=== PATIENT | male | born 1995 | race Caucasian/White ===

== ENCOUNTER 2017-08-27 18:20 | Emergency (ER) | payer MEDICAID | END 2017-08-27 19:45 | disposition home or self-care (01) | LOC: E/R 19:45 | DX: M54.2 Cervicalgia (principal); M54.9 Dorsalgia, unspecified; M25.511 Pain in right shoulder | CPT/HCPCS: 71045; 72040; 73000; 99284-25 ==

== ENCOUNTER 2017-09-25 11:26 | Emergency (ER) | payer MEDICAID | END 2017-09-25 12:30 | disposition home or self-care (01) | LOC: E/R 11:26 | DX: S60.221A Contusion of right hand, initial encounter (principal); V03.10XA Pedestrian on foot injured in collision with car, pick-up truck or van in traffic accident, initial encounter | CPT/HCPCS: 73110; 73110-RT; 73130-RT; 99283-25 ==

== ENCOUNTER 2017-09-26 16:14 | Emergency (ER) | payer MEDICAID | END 2017-09-26 16:29 | disposition home or self-care (01) | LOC: E/R 16:29 | DX: L03.115 Cellulitis of right lower limb (principal) | CPT/HCPCS: 99284; Z7502 ==

== ENCOUNTER 2018-04-11 13:18 | Emergency (ER) | payer SELFPAY, MEDICAID ==
[2018-04-11] MEDS: ONDANSETRON (ODT) 4 MG TAB ODT (15:41)
[2018-04-11] MEDS: CYCLOBENZAPRINE 10 MG TAB PO (15:48)
[2018-04-11] MEDS: IBUPROFEN 600 MG TAB PO (15:48)
== END 2018-04-11 16:00 | disposition home or self-care (01) ==
LOC: FTE 13:18
DX: R52 Pain, unspecified (principal); R40.2412 Glasgow coma scale score 13-15, at arrival to emergency department
CPT/HCPCS: 99283

== ENCOUNTER 2018-07-11 15:37 | Emergency (ER) | payer SELFPAY ==
[2018-07-11] MEDS: SOD CHLORIDE 0.9% 1,000 ML IV (19:03)
[2018-07-11] MEDS: morphine 4 MG/ML VIAL IV (19:04)
[2018-07-11] MEDS: ONDANSETRON 4 MG INJ IV (19:04)
[2018-07-11 19:08] LABS: ADD MAN DIFF? NO
[2018-07-11 19:12] LABS: WHITE BLOOD COUNT 8.6 10^3/ul (4.8-10.8)
[2018-07-11 19:12] LABS: BASOPHILS % 0.5 % (0.0-2.0); EOSINOPHILS # 0.1 10^3/ul (0.0-0.5); EOSINOPHILS % 1.4 % (0.0-7.0); HEMATOCRIT 50.1 % (42.0-52.0); HEMOGLOBIN 16.4 g/dl (14.0-18.0); LYMPHOCYTES # 1.8 10^3/ul (0.8-2.9); LYMPHOCYTES % 21.5 % (18.0-55.0); MEAN CORPUSCULAR HEMOGLOBIN 29.5 pg (29.0-33.0); MEAN CORPUSCULAR HGB CONC 32.7 g/dl (32.0-37.0); MEAN CORPUSCULAR VOLUME 90.3 fl (72.0-104.0); MEAN PLATELET VOLUME 10.3 fl (7.4-10.4); MONOCYTE # 0.6 10^3/ul (0.3-0.9); NEUTROPHIL # 5.9 10^3/ul (1.6-7.5); NEUTROPHILS % 69.1 % (30.0-74.0); PLATELET COUNT 163 10^3/UL (140-415); RED BLOOD COUNT 5.55 10^6/ul (4.70-6.10); RED CELL DISTRIBUTION WIDTH 13.1 % (11.5-14.5)
[2018-07-11 19:16] LABS: ADD UMIC NO; UR ASCORBIC ACID NEGATIVE (NEGATIVE); UR BILIRUBIN (Dip) NEGATIVE (NEGATIVE); UR BLOOD (Dip) NEGATIVE (NEGATIVE); UR CLARITY CLEAR (CLEAR); UR COLOR YELLOW (YELLOW); UR GLUCOSE (Dip) NEGATIVE (NEGATIVE); UR KETONES (Dip) 1+ mg/dL (NEGATIVE); UR LEUKOCYTE ESTERASE (Dip) NEGATIVE Leu/ul (NEGATIVE); UR NITRITE (Dip) NEGATIVE (NEGATIVE); UR SPECIFIC GRAVITY (Dip) 1.031 (1.003-1.030); UR TOTAL PROTEIN (Dip) NEGATIVE (NEGATIVE); UR UROBILINOGEN (Dip) 2+ mg/dL (NEGATIVE)
[2018-07-11 19:29] LABS: ALANINE AMINOTRANSFERASE 23 IU/L (13-69); ALBUMIN/GLOBULIN RATIO 1.61; ALKALINE PHOSPHATASE 89 IU/L (42-121); ANION GAP 13 (5-13); ASPARTATE AMINO TRANSFERASE 40 IU/L (15-46); BILIRUBIN,INDIRECT 1.5 mg/dl (0-1.1); BILIRUBIN,TOTAL 1.5 mg/dl (0.2-1.3); BLOOD UREA NITROGEN 22 mg/dl (7-20); CALCIUM 9.8 mg/dl (8.4-10.2); CARBON DIOXIDE 27 mmol/L (21-31); CHLORIDE 101 mmol/L (97-110); Estimated GFR > 60 mL/min (>60); GLUCOSE 83 mg/dl (70-220); LIPASE 67 U/L (23-300); POTASSIUM 4.2 mmol/L (3.5-5.1); SODIUM 141 mmol/L (135-144); TOTAL PROTEIN 8.1 g/dl (6.1-8.1)
[2018-07-11] MEDS: SOD CHLORIDE 0.9% 100 ML (20:12)
[2018-07-11] MEDS: IOHEXOL 300MG/ML 150 ML BTL (20:12)
[2018-07-11] MEDS: KETOROLAC 15 MG INJ IV (22:05)
== END 2018-07-11 22:18 | disposition home or self-care (01) ==
LOC: FTE 15:37
DX: R10.9 Unspecified abdominal pain (principal)
CPT/HCPCS: 36415; 74177; 80053; 81003; 83690; 85025; 96361; 96374; 96375; 99285-25

== ENCOUNTER 2018-11-19 19:06 | Inpatient (IN) | payer MEDICAID ==
[2018-11-20 00:01] LABS: ADD MAN DIFF? NO
[2018-11-20 00:02] LABS: WHITE BLOOD COUNT 8.9 10^3/ul (4.8-10.8)
[2018-11-20 00:02] LABS: BASOPHILS % 0.5 % (0.0-2.0); EOSINOPHILS # 0.3 10^3/ul (0.0-0.5); HEMATOCRIT 47.5 % (42.0-52.0); HEMOGLOBIN 15.7 g/dl (14.0-18.0); LYMPHOCYTES % 22.4 % (15.0-51.0); MEAN CORPUSCULAR HEMOGLOBIN 29.6 pg (29.0-33.0); MEAN CORPUSCULAR HGB CONC 33.1 g/dl (32.0-37.0); MEAN CORPUSCULAR VOLUME 89.5 fl (82.0-101.0); MEAN PLATELET VOLUME 9.5 fl (7.4-10.4); MONOCYTE # 0.8 10^3/ul (0.3-0.9); MONOCYTES % 8.6 % (0.0-11.0); NEUTROPHIL # 5.8 10^3/ul (1.6-7.5); NEUTROPHILS % 64.7 % (39.0-77.0); PLATELET COUNT 189 10^3/UL (140-415); RED BLOOD COUNT 5.31 10^6/ul (4.70-6.10); RED CELL DISTRIBUTION WIDTH 12.9 % (11.5-14.5)
[2018-11-20] MEDS: SOD CHLORIDE 0.9% 500 ML IV ×3 (00:05→05:55)
[2018-11-20 00:24] LABS: ALANINE AMINOTRANSFERASE 21 IU/L (13-69); ALBUMIN 4.6 g/dl (3.3-4.9); ALBUMIN/GLOBULIN RATIO 1.35; ALKALINE PHOSPHATASE 88 IU/L (42-121); ANION GAP 9 (5-13); ASPARTATE AMINO TRANSFERASE 29 IU/L (15-46); BILIRUBIN,INDIRECT 0.6 mg/dl (0-1.1); BILIRUBIN,TOTAL 0.6 mg/dl (0.2-1.3); BLOOD UREA NITROGEN 12 mg/dl (7-20); CALCIUM 9.4 mg/dl (8.4-10.2); CARBON DIOXIDE 29 mmol/L (21-31); CHLORIDE 103 mmol/L (97-110); CREATININE 0.87 mg/dl (0.61-1.24); Estimated GFR > 60 mL/min (>60); GLUCOSE 99 mg/dl (70-220); POTASSIUM 3.9 mmol/L (3.5-5.1); SODIUM 141 mmol/L (135-144)
[2018-11-20 00:41] LABS: INR 0.91; PROTIME 12.4 Sec (11.9-14.9)
[2018-11-20 00:42] LABS: PARTIAL THROMBOPLASTIN TIME 28.2 Sec (23.0-35.0)
[2018-11-20] MEDS ORDERED: ONDANSETRON 4 MG INJ (00:52)
[2018-11-20] MEDS: ONDANSETRON 4 MG INJ IV (00:53)
[2018-11-20] MEDS: morphine 4 MG/ML VIAL IV (00:53)
[2018-11-20] MEDS: SOD CHLORIDE 0.9% 100 ML (01:20)
[2018-11-20] MEDS: IOHEXOL 300MG/ML 150 ML BTL (01:20)
[2018-11-20] MEDS ORDERED: morphine 2 MG INJ IV (04:00)
[2018-11-20] MEDS ORDERED: BISACODYL (EC) 5 MG TAB PO (04:00)
[2018-11-20] MEDS ORDERED: ACETAMINOPHEN 325 MG TAB PO (04:00)
[2018-11-20] MEDS ORDERED: NACL 0.9% 3 ML SYG IV (04:00)
[2018-11-20] MEDS ORDERED: DOCUSATE SODIUM 100 MG CAP PO (04:00)
[2018-11-20] MEDS ORDERED: ONDANSETRON 4 MG INJ IV (04:00)
[2018-11-20] MEDS: SOD CHLORIDE 0.9% 1,000 ML IV ×2 (04:23→06:48)
[2018-11-20] MEDS: HYDROmorphONE 0.5 MG/0.5 ML SYG IV ×2 (05:03→19:52)
[2018-11-20] MEDS: AZITHROMYCIN 500 MG TAB PO (05:27)
[2018-11-20 05:34] LABS: ADD UMIC NO; UR ASCORBIC ACID NEGATIVE (NEGATIVE); UR BILIRUBIN (Dip) NEGATIVE (NEGATIVE); UR BLOOD (Dip) NEGATIVE (NEGATIVE); UR CLARITY CLEAR (CLEAR); UR COLOR STRAW (YELLOW); UR GLUCOSE (Dip) NEGATIVE (NEGATIVE); UR KETONES (Dip) NEGATIVE (NEGATIVE); UR LEUKOCYTE ESTERASE (Dip) NEGATIVE Leu/ul (NEGATIVE); UR NITRITE (Dip) NEGATIVE (NEGATIVE); UR SPECIFIC GRAVITY (Dip) 1.021 (1.003-1.030); UR TOTAL PROTEIN (Dip) NEGATIVE (NEGATIVE); UR UROBILINOGEN (Dip) NEGATIVE (NEGATIVE)
[2018-11-20] MEDS: CEFTRIAXONE 250 MG INJ IM (06:14)
[2018-11-20] MEDS: HYDROCODONE/APAP (5/325) TAB PO ×2 (06:19→21:00)
[2018-11-20 06:21] LABS: ADD MAN DIFF? NO
[2018-11-20 06:26] LABS: BASOPHILS % 0.5 % (0.0-2.0); EOSINOPHILS # 0.3 10^3/ul (0.0-0.5); EOSINOPHILS % 3.2 % (0.0-7.0); LYMPHOCYTES # 1.5 10^3/ul (0.8-2.9); LYMPHOCYTES % 19.9 % (15.0-51.0); MEAN CORPUSCULAR HEMOGLOBIN 29.8 pg (29.0-33.0); MEAN CORPUSCULAR HGB CONC 33.3 g/dl (32.0-37.0); MEAN CORPUSCULAR VOLUME 89.3 fl (82.0-101.0); MONOCYTE # 0.7 10^3/ul (0.3-0.9); MONOCYTES % 8.5 % (0.0-11.0); NEUTROPHIL # 5.2 10^3/ul (1.6-7.5); NEUTROPHILS % 67.3 % (39.0-77.0); PLATELET COUNT 179 10^3/UL (140-415); RED BLOOD COUNT 5.04 10^6/ul (4.70-6.10)
[2018-11-20 06:26] LABS: WHITE BLOOD COUNT 7.7 10^3/ul (4.8-10.8)
[2018-11-20] MEDS: PIPER-TAZO 3.375 GM IV (PMX) 100 ML IVPB ×3 (06:48→18:00)
[2018-11-20 07:35] LABS: HIV 1&2 ANTIBODY NEGATIVE (NEGATIVE)
[2018-11-20 13:03] LABS: ADD MAN DIFF? NO
[2018-11-20 13:06] LABS: BASOPHILS % 0.5 % (0.0-2.0); EOSINOPHILS # 0.3 10^3/ul (0.0-0.5); EOSINOPHILS % 3.9 % (0.0-7.0); HEMATOCRIT 44.4 % (42.0-52.0); HEMOGLOBIN 14.3 g/dl (14.0-18.0); LYMPHOCYTES # 1.4 10^3/ul (0.8-2.9); LYMPHOCYTES % 18.2 % (15.0-51.0); MEAN CORPUSCULAR HEMOGLOBIN 29.3 pg (29.0-33.0); MEAN CORPUSCULAR HGB CONC 32.2 g/dl (32.0-37.0); MEAN PLATELET VOLUME 10.1 fl (7.4-10.4); MONOCYTE # 0.8 10^3/ul (0.3-0.9); MONOCYTES % 10.3 % (0.0-11.0); NEUTROPHIL # 5.1 10^3/ul (1.6-7.5); NEUTROPHILS % 66.5 % (39.0-77.0); PLATELET COUNT 181 10^3/UL (140-415); RED BLOOD COUNT 4.88 10^6/ul (4.70-6.10); RED CELL DISTRIBUTION WIDTH 13.2 % (11.5-14.5)
[2018-11-20 13:06] LABS: WHITE BLOOD COUNT 7.7 10^3/ul (4.8-10.8)
[2018-11-20] MEDS ORDERED: LIDOCAINE 2% (SDV) 5 ML INJ (14:47)
[2018-11-20] MEDS: PROPOFOL 40 ML (15:38)
[2018-11-20 16:08] LABS: RAPID PLASMA REAGIN NONREACTIVE (NR)
[2018-11-20] MEDS: morphine 2 MG INJ IV (16:38)
[2018-11-20 18:47] LABS: ADD MAN DIFF? NO
[2018-11-20 18:50] LABS: WHITE BLOOD COUNT 8.6 10^3/ul (4.8-10.8)
[2018-11-20 18:50] LABS: BASOPHILS % 0.5 % (0.0-2.0); EOSINOPHILS # 0.3 10^3/ul (0.0-0.5); EOSINOPHILS % 3.3 % (0.0-7.0); HEMATOCRIT 43.8 % (42.0-52.0); HEMOGLOBIN 14.4 g/dl (14.0-18.0); LYMPHOCYTES # 1.4 10^3/ul (0.8-2.9); LYMPHOCYTES % 16.1 % (15.0-51.0); MEAN CORPUSCULAR HEMOGLOBIN 29.6 pg (29.0-33.0); MEAN CORPUSCULAR HGB CONC 32.9 g/dl (32.0-37.0); MEAN CORPUSCULAR VOLUME 90.1 fl (82.0-101.0); MEAN PLATELET VOLUME 9.8 fl (7.4-10.4); MONOCYTE # 0.6 10^3/ul (0.3-0.9); NEUTROPHIL # 6.2 10^3/ul (1.6-7.5); NEUTROPHILS % 72.5 % (39.0-77.0); PLATELET COUNT 176 10^3/UL (140-415); RED BLOOD COUNT 4.86 10^6/ul (4.70-6.10); RED CELL DISTRIBUTION WIDTH 12.9 % (11.5-14.5)
[2018-11-20] MEDS: MESALAMINE 1000 MG SUPP PR (21:51)
[2018-11-21] MEDS: PIPER-TAZO 3.375 GM IV (PMX) 100 ML IVPB ×2 (00:17→05:29)
[2018-11-21] MEDS: HYDROmorphONE 0.5 MG/0.5 ML SYG IV ×3 (01:19→14:00)
[2018-11-21] MEDS: HYDROCODONE/APAP (5/325) TAB PO (03:25)
[2018-11-21] MEDS: DIPHENHYDRAMINE 50 MG CAP PO (06:15)
[2018-11-21 07:13] LABS: ADD MAN DIFF? NO
[2018-11-21 07:16] LABS: BASOPHILS % 0.6 % (0.0-2.0); EOSINOPHILS # 0.3 10^3/ul (0.0-0.5); EOSINOPHILS % 4.4 % (0.0-7.0); HEMATOCRIT 45.5 % (42.0-52.0); HEMOGLOBIN 15.1 g/dl (14.0-18.0); LYMPHOCYTES # 1.3 10^3/ul (0.8-2.9); LYMPHOCYTES % 19.1 % (15.0-51.0); MEAN CORPUSCULAR HGB CONC 33.2 g/dl (32.0-37.0); MEAN CORPUSCULAR VOLUME 90.3 fl (82.0-101.0); MEAN PLATELET VOLUME 9.4 fl (7.4-10.4); MONOCYTE # 0.5 10^3/ul (0.3-0.9); MONOCYTES % 7.3 % (0.0-11.0); NEUTROPHIL # 4.8 10^3/ul (1.6-7.5); PLATELET COUNT 183 10^3/UL (140-415); RED BLOOD COUNT 5.04 10^6/ul (4.70-6.10); RED CELL DISTRIBUTION WIDTH 12.8 % (11.5-14.5)
[2018-11-21 07:38] LABS: CHOLESTEROL 136 mg/dl (100-200); HDL CHOLESTEROL 45 mg/dl (30-63); LDL CHOLESTEROL,CALCULATED 74 mg/dl; MAGNESIUM 1.9 mg/dl (1.7-2.5); TRIGLYCERIDES 85 mg/dl (0-149)
[2018-11-21 07:38] LABS: PHOSPHORUS 5.2 mg/dl (2.5-4.9)
[2018-11-21 07:43] LABS: ANION GAP 10 (5-13); BLOOD UREA NITROGEN 7 mg/dl (7-20); CALCIUM 9.2 mg/dl (8.4-10.2); CARBON DIOXIDE 29 mmol/L (21-31); CHLORIDE 101 mmol/L (97-110); CREATININE 0.94 mg/dl (0.61-1.24); Estimated GFR > 60 mL/min (>60); GLUCOSE 94 mg/dl (70-220); POTASSIUM 4.4 mmol/L (3.5-5.1); SODIUM 140 mmol/L (135-144)
[2018-11-21 09:51] LABS: OCCULT BLOOD STOOL NEGATIVE (NEGATIVE)
[2018-11-21] MEDS: DOXYCYCLINE 100 MG TAB PO ×2 (14:03→21:14)
[2018-11-21] MEDS: valACYclovir 500 MG TAB PO (21:14)
[2018-11-21] MEDS: MESALAMINE 1000 MG SUPP PR (21:14)
[2018-11-21] MEDS: OXYCODONE/ACETAMINOPHEN (5/325) TAB PO (21:18)
[2018-11-22] MEDS: HYDROmorphONE 0.5 MG/0.5 ML SYG IV ×3 (00:34→10:27)
[2018-11-22 05:52] LABS: ADD MAN DIFF? NO
[2018-11-22 05:59] LABS: BASOPHILS % 0.5 % (0.0-2.0); EOSINOPHILS # 0.3 10^3/ul (0.0-0.5); EOSINOPHILS % 5.1 % (0.0-7.0); HEMATOCRIT 50.4 % (42.0-52.0); HEMOGLOBIN 16.4 g/dl (14.0-18.0); LYMPHOCYTES # 1.5 10^3/ul (0.8-2.9); LYMPHOCYTES % 26.7 % (15.0-51.0); MEAN CORPUSCULAR HEMOGLOBIN 29.3 pg (29.0-33.0); MEAN CORPUSCULAR HGB CONC 32.5 g/dl (32.0-37.0); MEAN PLATELET VOLUME 9.8 fl (7.4-10.4); MONOCYTE # 0.5 10^3/ul (0.3-0.9); MONOCYTES % 8.4 % (0.0-11.0); NEUTROPHIL # 3.4 10^3/ul (1.6-7.5); NEUTROPHILS % 58.4 % (39.0-77.0); PLATELET COUNT 213 10^3/UL (140-415); RED CELL DISTRIBUTION WIDTH 12.9 % (11.5-14.5)
[2018-11-22 05:59] LABS: WHITE BLOOD COUNT 5.7 10^3/ul (4.8-10.8)
[2018-11-22 06:22] LABS: PHOSPHORUS 4.9 mg/dl (2.5-4.9)
[2018-11-22 06:24] LABS: ANION GAP 10 (5-13); BLOOD UREA NITROGEN 13 mg/dl (7-20); CALCIUM 9.9 mg/dl (8.4-10.2); CARBON DIOXIDE 30 mmol/L (21-31); CHLORIDE 100 mmol/L (97-110); CREATININE 0.94 mg/dl (0.61-1.24); Estimated GFR > 60 mL/min (>60); GLUCOSE 94 mg/dl (70-220); POTASSIUM 4.8 mmol/L (3.5-5.1); SODIUM 140 mmol/L (135-144)
[2018-11-22] MEDS: DOXYCYCLINE 100 MG TAB PO (08:24)
[2018-11-22] MEDS: valACYclovir 500 MG TAB PO (08:27)
[2018-11-22] MEDS: OXYCODONE/ACETAMINOPHEN (5/325) TAB PO (15:35)
== END 2018-11-22 15:44 | disposition home or self-care (01) | DRG 395 ==
LOC: E/R 19:06 → PP2 11-20 05:39
PROC: 0DBP8ZX Excision of Rectum, Via Natural or Artificial Opening Endoscopic, Diagnostic (ICD-10-PCS; principal; 2018-11-20 15:15)
DX: K62.89 Other specified diseases of anus and rectum (principal); E66.9 Obesity, unspecified; Z68.32 Body mass index [BMI] 32.0-32.9, adult; F17.200 Nicotine dependence, unspecified, uncomplicated; K64.8 Other hemorrhoids
CPT/HCPCS: 36415; 74177; 80048; 80053; 80061; 81003; 82270; 83036; 83735; 84100; 84443; 85025; 85610; 85730; 86592; 86703; 86850; 86900; 86901; 87086; 87591; 88305; 96374; 96375; 99285-25